=== PATIENT | female | born 2000 | race Hispanic/Latino ===

== ENCOUNTER 2024-12-28 17:21 | Emergency (ER) | payer BC ==
--- OUTSIDE RECORDS SUMMARY | 2024-12-28 17:41 | XMS REPORT | Continuity of Care Document ---
Author Name Unknown Address [address] [facility] [place] [address] Organization [facility] Address [address] [facility] [place] [address] Care Team Providers Care Medical Lab Director Name Role Phone [email or web address] Attending Clinician Jose Zuniga Attending Clinician [phone] LEXA_[email or web address] Admitting Clinician Fabián retana Payers Payer Name Policy Type Policy Number Effective Date Expirati on Date Source [place] [id number] 2012 00:00:00 Social History Smoking Status Start Date Stop Date Source Never Smoker [facility] Medications Ordered Medication Name Filled Medication Name Start Date Stop Date Current Medication? Ordering Clinician Indication Dosage Frequency Signature (SIG) Comments Components Source etonogestre l 0.12 mg-ethinyl estradiol 0.015 mg/24 hr vaginal ring Insert 1 vaginal ring every month by vaginal route as directed. etonogestre l 0.12 mg-ethinyl estradiol 0.015 mg/24 hr vaginal ring Insert 1 vaginal ring every month by vaginal route as directed. No 1 etonogestr el 0.12 mg-ethinyl estradiol 0.015 mg/24 hr vaginal ring Insert 1 vaginal ring every month by vaginal route as directed. [facility] Vital Signs Vital Name Observation Time Observation Value Comments S ource BP Diastolic 2021-03-04 00:00:00 72 mm[Hg] [facility] Height 2021-03-04 00:00:00 66 [in_i] [facility] BMI (Body Mass Index) 2021-03-04 00:00:00 23.4 kg/m2 [facility] BP Systolic 2021-03-04 00:00:00 112 mm[Hg] [facility] Body Weight 2021-03-04 00:00:00 145 [lb_av] [facility] Plan of Care Planned Activity Planned Date Details Comments Source Diagnostic Test Pending 2021-03-04 00:00:00 [place] IgE Ab [Units/volume] in Serum [code = 6195-2] [facility] Medical Diagnostic Test Pending 2021-03-04 00:00:00 Indirect antiglobulin test.IgG specific reagent [Presence] in Serum or Plasma [code = 1005-8] [facility] Medical Encounters Start Date/Time End Date/Time Encounter Type Admission Type Attending [facility] Facility Care Department Encounter ID Source 2021-03-04 00:00:00 2021-03-04 00:00:00 Outpatient Jose Gutierrez [facility] [id number] 00:00:00 2021-03-04 00:00:00 Jose Gutierrez MD: [address], [address], [place] [address] , Ph. Formerly [facility], [facility] [place] Office* [phone] [facility] Medical Results Test Description Test Time Test Comments Results Result Co mments Source [facility]
--- NOTE | 2024-12-28 18:48 | RAD REPORT ---
EXAM:Finger-Thumb Right HISTORY: laceration COMPARISON: None FINDINGS/IMPRESSION: Soft tissue swelling is seen along the dorsum of the finger at the level of the PIP joint. No fracture or radiopaque foreign body. No soft tissue gas.
[2024-12-28] MEDS ORDERED: TDAP (DIPHTH,PERTUSS(ACELL),TET VAC) 0.5 ML VIAL IMVAC ONE (18:58)
[2024-12-28] MEDS ORDERED: LIDOCAINE 1% 20 ML MDV ONE (18:58)
[2024-12-28] MEDS ORDERED: LIDOCAINE 2% MPF 5 ML VIAL ONE ×2 (18:59→19:02)
--- NOTE | 2024-12-28 19:54 | ER ---
Nurse's Notes [facility] Name: Carol Alanis Age: 24 yrs Sex: Female : 2000 Arrival Date: 12/28/2024 Time: 17:21 Bed 11 Private MD: Diagnosis: Laceration without foreign body of left index finger without damage to nail Presentation: 12/28 18:07 Chief complaint: Patient states: she cut her let index finger with a knife while ap3 cutting Hamburger meat. Coronavirus screen: At this time, the client does not indicate any symptoms associated with coronavirus-19. Ebola Screen: No symptoms or risks identified at this time. Initial Sepsis Screen: Does the patient meet any 2 criteria? No. Patient's initial sepsis screen is negative. Does the patient have a suspected source of infection? No. Patient's initial sepsis screen is negative. Risk Assessment: Do you want to hurt yourself or someone else? Patient reports no desire to harm self or others. Onset of symptoms was December 28, 2024. 18:07 Method Of Arrival: Ambulatory ap3 18:07 Acuity: SANDY 4 ap3 Triage Assessment: 18:08 General: Appears in no apparent distress. Behavior is calm, cooperative, appropriate ap3 for age. Pain: Complains of pain in left hand. Neuro: Level of Consciousness is awake, alert, obeys commands, Oriented to person, place, time, situation, Appropriate for age. Cardiovascular: Patient's skin is warm and dry. Respiratory: Airway is patent Respiratory effort is even, unlabored, Respiratory pattern is regular, symmetrical. Derm: Wound noted left index finger. 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 - Infectious Disease History:: Denies. - Social history:: Smoking status: Patient denies any tobacco usage or history of. Screenin:10 [facility] ED Fall Risk Assessment (Adult) History of falling in the last 3 months, ap3 including since admission No falls in past 3 months (0 pts) Confusion or Disorientation No (0 pts) Intoxicated or Sedated No (0 pts) Impaired Gait No (0 pts) Mobility Assist Device Used No (0 pt) Altered Elimination No (0 pt) Score/Fall Risk Level 0 - 2 = Low Risk Oriented to surroundings, Maintained a safe environment, Educated pt \T\ family on fall prevention, incl call for assistance when getting out of bed, Assessed \T\ reinforced patient's understanding of fall precautions, Hourly rounding (assess needs \T\ fall precautionary measures) done, Used ambulatory aids as needed (educated on \T\ assisted with). Abuse screen: Denies threats or abuse. Nutritional screening: No deficits noted. Tuberculosis screening: No symptoms or risk factors identified. Assessment: 18:00 General: Appears uncomfortable, well groomed, well developed, well nourished, Behavior me1 is calm, cooperative, appropriate for age, Reports she cut her left index finger with a knife while cutting Hamburger meat. Pain: Complains of pain in left index finger Pain does not radiate. Pain currently is 5 out of 10 on a pain scale. Quality of pain is described as throbbing, Pain began suddenly, Is continuous. Neuro: Level of Consciousness is awake, alert, obeys commands, Oriented to person, place, time, situation, Appropriate for age. Cardiovascular: Patient's skin is warm and dry. Respiratory: Airway is patent Respiratory effort is even, unlabored, Respiratory pattern is regular, symmetrical. GI: No signs and/or symptoms were reported involving the gastrointestinal system. : No signs and/or symptoms were reported regarding the genitourinary system. EENT: No signs and/or symptoms were reported regarding the EENT system. Derm: Skin is healthy with good turgor, Skin is normal, Wound noted left index finger Wound is laceration. Musculoskeletal: Circulation, motion, and sensation intact. Range of motion: intact in all extremities. Injury Description: Laceration sustained to left index finger is clean, a small amount of bleeding noted at this time. Vital Signs: 18:07 BP 117 / 72; Pulse 79; Resp 17; Temp 98.2; Pulse Ox 100% ; Weight 62.14 kg; Height 5 ap3 ft. 5 in. ; Pain 5/10; 20:03 BP 120 / 75; Pulse 79; Resp 16; Temp 98.1; Pulse Ox 100% ; me1 18:07 Body Mass Index 22.80 (62.14 kg, 165.1 cm) ap3 18:07 Pain Scale: Adult ap3 ED Course: 17:24 Patient arrived in ED. 17:32 Adal Dozier PA-C is PHCP. cp 17:32 Adal Amaya MD is Attending Physician. cp 18:00 Patient has correct armband on for positive identification. Bed in low position. Call me1 light in reach. Side rails up X 1. Provided Education on: POC. Verbalized understanding.. Client placed on continuous cardiac and pulse oximetry monitoring. NIBP monitoring applied. Pulse ox on. NIBP on. 18:00 No provider procedures requiring assistance completed. me1 18:07 Melissa Calvert, TITO is Primary Nurse. me1 18:08 Triage completed. ap3 18:10 Arm band placed on right wrist. ap3 18:43 XRAY Finger-Thumb RIGHT In Process Unspecified. EDMS 20:04 Patient did not have IV access during this emergency room visit. me1 Administered Medications: 19:11 Not Given (Patient Refused): boostrix tdap0.5 ml IM once; as a single dose me1 19:28 Drug: Lidocaine Infiltration (2 %) 10 ml 5 ml Infiltration once; to bedside {Note: me1 Administered by PA. Alessandra} Volume: 5 ml; Route: Infiltration; 19:28 Follow up: Response: No adverse reaction; Pain is decreased me1 Medication: 18:00 VIS not applicable for this client. me1 Outcome: 19:54 Discharge ordered by MD. cp 20:04 Discharged to home ambulatory, with family, me1 20:04 Condition: stable 20:04 Discharge instructions given to patient, family, Instructed on discharge instructions, follow up and referral plans. medication usage, wound care, Demonstrated understanding of instructions, follow-up care, medications, wound care, Prescriptions given X 1, 20:05 Patient left the ED. me1 Signatures: Dispatcher [employer] [facility] Adal Dozier PA-C PA-C cp Prokisch, Amanda RN RN ap3 Carole Collado Melissa Calvert, RN RN me1 Corrections: (The following items were deleted from the chart) 18:15 18:07 Chief complaint: Patient states: she cut her let index finger with a knife while me1 cutting Hamburger meat ap3
--- NOTE | 2024-12-28 19:54 | EDPHYS ---
Physician Documentation [facility] Name: Carol Alanis Age: 24 yrs Sex: Female : 2000 Arrival Date: 12/28/2024 Time: 17:21 Bed 11 Private MD: ED Physician Adal Amaya HPI: 12/28 18:00 This 24 yrs old Female presents to ER via Ambulatory with complaints of Finger cp Injury - left hand pointer. 18:00 The patient or guardian reports a laceration, clean. The complaints affect the dosal cp side along proximal interphalangeal joint of left index finger. 18:00 Context: accidental injury using bread knife. Onset: The symptoms/episode cp began/occurred just prior to arrival. 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 - Infectious Disease History:: Denies. - Social history:: Smoking status: Patient denies any tobacco usage or history of. ROS: 18:05 Constitutional: Negative for body aches, chills, fever, poor PO intake, cp 18:05 Eyes: Negative for injury, pain, redness, and discharge, cp 18:05 Skin: Positive for laceration(s), of the dorsal side of left index finger, 18:05 Neuro: Positive for tingling, of the distal tip of left index finger, 18:05 All other systems are negative, Exam: 18:10 Constitutional: The patient appears in no acute distress, alert, awake, non-toxic, well cp developed, well nourished, uncomfortable, 18:10 Head/Face: Normocephalic, atraumatic. cp 18:10 Chest/axilla: Inspection: normal, 18:10 Cardiovascular: Rate: normal, Rhythm: regular, 18:10 Respiratory: the patient does not display signs of respiratory distress, Respirations: normal, no use of accessory muscles, no retractions, labored breathing, is not present, 18:10 Abdomen/GI: Inspection: abdomen appears normal, 18:10 Musculoskeletal/extremity: Extremities: noted in the left index finger: Laceration noted to dorsal side proximal interphalangeal joint with no active bleeding, mild swelling noted bony tenderness to palpation, There is no evidence of ROM: full active range of motion, in the left index finger, Perfusion: the extremity is normally perfused throughout, the distal tip of left index finger Tingling of extremity. Tendon exam: specific tendon testing normal through active and passive range of motion Vital Signs: 18:07 BP 117 / 72; Pulse 79; Resp 17; Temp 98.2; Pulse Ox 100% ; Weight 62.14 kg; Height 5 ap3 ft. 5 in. ; Pain 5/10; 20:03 BP 120 / 75; Pulse 79; Resp 16; Temp 98.1; Pulse Ox 100% ; me1 18:07 Body Mass Index 22.80 (62.14 kg, 165.1 cm) ap3 18:07 Pain Scale: Adult ap3 Laceration: 19:55 Wound Repair of 2cm ( 0.8in ) subcutaneous laceration to dorsal side proximal cp interphalangeal joint of left index finger. Linear shaped.. Distal neuro/vascular/tendon intact. Anesthesia: Digital block administered with 5 mls of 2% lidocaine. Wound prep: Moderate cleansing by me, Wound irrigation by me. Skin closed with 3 4-0 Prolene using interrupted sutures and sterile technique. Dressed with Bacitracin, 4x4's. Patient tolerated well. MDM: 17:55 Medical Screening Exam initiated cp 19:54 Data reviewed: vital signs, nurses notes, radiologic studies, plain films, and as a cp result, I will discharge patient. 19:54 Differential diagnosis: open fracture, tendon injury, simple laceration. I considered cp the following discharge prescriptions or medication management in the emergency department Medications were administered in the Emergency Department. See MAR. Counseling: I had a detailed discussion with the patient and/or guardian regarding the historical points, exam findings, and any diagnostic results supporting the discharge/admit diagnosis, radiology results, the need for outpatient follow up, a family practitioner, to return to the emergency department if symptoms worsen or persist or if there are any questions or concerns that arise at home. Response to treatment: the patient's symptoms have markedly improved after treatment, and as a result, I will discharge patient. 12/28 17:59 Order name: XRAY Finger-Thumb RIGHT; Complete Time: 18:51 cp 12/28 18:46 Order name: Dressing - Wound; Complete Time: 19:42 cp 12/28 18:46 Order name: Gloves, Sterile; Complete Time: 19:28 cp 12/28 18:46 Order name: Setup Suture Tray; Complete Time: 19:28 cp 12/28 19:33 Order name: Wound dressing; Complete Time: 19:42 cp 12/28 19:33 Order name: Finger Splint; Complete Time: 19:42 cp Administered Medications: 19:11 Not Given (Patient Refused): boostrix tdap0.5 ml IM once; as a single dose me1 19:28 Drug: Lidocaine Infiltration (2 %) 10 ml 5 ml Infiltration once; to bedside {Note: me1 Administered by PA. Alessandra} Volume: 5 ml; Route: Infiltration; 19:28 Follow up: Response: No adverse reaction; Pain is decreased me1 Disposition Summary: 12/28/24 19:54 Discharge Ordered Notes: Location: Home cp Problem: new cp Symptoms: have improved cp Condition: Stable cp Diagnosis - Laceration without foreign body of left index finger without damage to nail cp Followup: cp - With: Private Physician - When: 7 - 10 days - Reason: Staple/Suture removal Discharge Instructions: - Discharge Summary Sheet cp - Laceration Care, Adult cp Forms: - Medication Reconciliation Form cp - Antibiotic Education cp - Prescription Opioid Use cp - Patient Portal Instructions cp - Leadership Thank You Letter cp Prescriptions: - Ibuprofen 800 mg Oral Tablet - take 1 tablet ORAL route every 8 hours As needed take with food; 30 tablet; cp Refills: 0, Product Selection Permitted Addendum: 12/30/2024 07:38 Co-signature as Attending Physician, Adal Amaya MD I agree with the assessment and c heart plan of care. Signatures: Dispatcher [employer] Adal Rapp MD MD cha Page, Corey, PANeilC PATatyana Blanchard cp RN RN ap3 Melissa Calvert RN RN me1
[2024-12-28 22:02] VITALS: O2SAT 100
[2024-12-28 22:03] VITALS: BP 120/75; TEMP 98.1
== END 2024-12-28 20:05 | disposition home or self-care (01) ==
LOC: ER 17:21
DX: S61.211A Laceration without foreign body of left index finger without damage to nail, initial encounter (principal); W26.0XXA Contact with knife, initial encounter
CPT/HCPCS: 73140; 99284; 12041; J2003 ×2; 90715